=== PATIENT | male | born 1990 | race Caucasian/White ===

== ENCOUNTER → 2019-05-19 | Outpatient (CLI) | payer OTHER ==
--- NOTE | 2019-05-19 14:48 | REP ---
THREE-PHASE BONE SCAN OF THE KNEES AND LOWER EXTREMITIES. HISTORY: Bilateral leg pain. Bilateral tibial pain for greater than 1 year. Had history of previous bone scan in 2013 showing no fracture. TECHNIQUE: 22.0 mCi technetium 99m MDP is injected, and standard three-phase images are acquired. SCINTIGRAPHIC FINDINGS: Anterior and posterior flow images are normal. Blood pool images of the calves show no regional flow asymmetry. Delayed scan images demonstrate a linear pattern of increased uptake in the posterior cortex of each mid and distal tibia and to some degree in the medial cortices, consistent with stress periostitis or macdonald splints. No establish stress fracture is seen. IMPRESSION: Stress periostitis pattern in each distal tibia. Symmetrical findings. No establish stress fracture seen. Electronically Signed by Chi Jolly MD 05/19/2019 06:39 P
== END ==
LOC: M RAD 10:40
PROVIDERS: ATTEND Physician Assistant
DX: M79.605 Pain in left leg (principal); M79.604 Pain in right leg

== ENCOUNTER → 2023-10-15 | Outpatient (REF) | payer OTHER | LOC: M SMT 12:58 | PROVIDERS: ATTEND Urology | DX: Z30.2 Encounter for sterilization (principal) ==

== ENCOUNTER → 2023-12-03 | Outpatient (REF) | payer OTHER ==
[2023-12-03 11:20] LABS: SEMEN APPEARANCE OPAQUE (OPAQUE); SEMEN VISCOSITY LIQUID (LIQUID); SEMEN VOLUME 1.2 ml (2.0-5.0); SEMEN pH 8.5 (7.0-8.0); WBC CONCENTRATION >1 M/ml (<=1 M/ml)
== END ==
LOC: M SMT 10:51
PROVIDERS: ATTEND Urology
DX: Z30.8 Encounter for other contraceptive management (principal)

== ENCOUNTER → 2024-05-26 | Outpatient (CLI) | payer BC, OTHER | LOC: M WUC 09:02 | PROVIDERS: ATTEND Physician Assistant | DX: S39.012A Strain of muscle, fascia and tendon of lower back, initial encounter (principal); M51.369 Other intervertebral disc degeneration, lumbar region without mention of lumbar back pain or lower extremity pain; Y93.9 Activity, unspecified; Y92.9 Unspecified place or not applicable ==